=== PATIENT | male | born 1995 | race African-American/Black ===

== ENCOUNTER 2016-12-11 01:33 | Emergency (ER) | payer SELFPAY ==
[~2016-12-11] VITALS: Ht 172.7 cm; Wt 80.0 kg
[2016-12-11 01:35] VITALS: BP 115/59; PULSE 52; RESP 16; TEMP 99.7; O2SAT 98
[2016-12-11] MEDS ORDERED: SODIUM CHLORIDE 0.9% FLUSH 10 ML FLUSH IVF PRN ×2 (02:00→02:45)
[2016-12-11 02:17] LABS: BLOOD, URINE NEG (NEG); COMMENT (UR) CULT NOT INDICATED; CULTURE IF INDICATED CULT NOT INDICATED; GLUCOSE,URINE NEG (NEG); HYALINE CAST, URINE 1 /lpf (RARE); KETONE, URINE TRACE mg/dL (NEG); MUCUS URINE MANY /lpf (OCC); NITRITE,URINE NEG (NEG); PH, URINE 5.5 (5.0-8.5); URINE COLOR YELLOW (YELLW/STRAW)
--- NOTE | 2016-12-11 02:35 | PD ---
HPI Chief Complaint: Complaint Time Seen by Provider: 02:32 Travel History International Travel<30 days: No Contact w/Intl Traveler<30days: No Traveled to known affect area: No History of Present Illness HPI 21-year-old male patient presents to the ER today because he states that he had unprotected sex with a new partner, and has been having dysuria for the past day. He has not noticed any penile discharge, fevers, testicular pain, or any other symptoms. He states that he has an ex-girlfriend that was recently diagnosed with Trichomonas. Modifying Factors: None Associated Signs & Symptoms: Urinary symptoms, dysuria Risk Factors: Unprotected sex with new partner PFSH Past Medical History Asthma: Yes Developmental Delay: No Diminished Hearing: No Respiratory: Yes (STREP THROAT IN OCTOBER) Immunizations Current: Yes Social History Alcohol Use: No Tobacco Use: No Substance Use: No (H/O [facility]) Allergies-Medications (Allergen,Severity, Reaction): Coded Allergies: Bees (Verified Allergy, Severe, Anaphylaxis, 10/25/15) Uncoded Allergies: POISON CASANDRA (Allergy, Severe, Rash, 05/22/15) Reported Meds & Prescriptions Reported Meds & Active Scripts Active No Active Prescriptions or Reported Medications Review of Systems Except as stated in HPI: all other systems reviewed are Neg Physical Exam Narrative GENERAL: Well-developed young -[place] male patient currently none acute distress. Awake and oriented 3. SKIN: Focused skin assessment warm/dry. HEAD: Atraumatic. Normocephalic. EYES: Pupils equal and round. No scleral icterus. No injection or drainage. ENT: No nasal bleeding or discharge. Mucous membranes pink and moist. NECK: Trachea midline. No JVD. CARDIOVASCULAR: Regular rate and rhythm. No murmur appreciated. RESPIRATORY: No accessory muscle use. Clear to auscultation. Breath sounds equal bilaterally. GASTROINTESTINAL: Abdomen soft, non-tender, nondistended. Hepatic and splenic margins not palpable. GENITOURINARY: Circumcised. Testes descended bilaterally without evidence of rotation. No lesions or erythema. No urethral discharge. MUSCULOSKELETAL: No obvious deformities. No clubbing. No cyanosis. No edema. NEUROLOGICAL: Awake and alert. No obvious cranial nerve deficits. Motor grossly within normal limits. Normal speech. PSYCHIATRIC: Appropriate mood and affect; insight and judgment normal. Data Data Last Documented VS Vital Signs Date Time Temp Pulse Resp B/P Pulse Ox O2 Delivery O2 Flow Rate FiO2 12/11/16 01:35 99.7 52 16 115/59 98 Orders Urinalysis - C+S If Indicated (12/11/16 01:49) Gc And Chlamydia Pcr (12/11/16 01:49) Sodium Chloride 0.9% Flush (Ns Flush) (12/11/16 02:00) Azithromycin Powd Pack (Zithromax Powd P (12/11/16 02:45) Ceftriaxone Inj (Rocephin Inj) (12/11/16 02:45) Metronidazole (Flagyl) (12/11/16 02:45) Sodium Chloride 0.9% Flush (Ns Flush) (12/11/16 02:45) Lidocaine 1% Inj (50 Ml) (Xylocaine 1% I (12/11/16 02:45) Labs Laboratory Tests Test 12/11/16 02:00 Urine Color YELLOW Urine Turbidity CLEAR Urine pH 5.5 Urine Specific [place] 1.038 Urine Protein 30 mg/dL Urine Glucose (UA) NEG mg/dL Urine Ketones TRACE mg/dL Urine Occult Blood NEG Urine Nitrite NEG Urine Bilirubin NEG Urine Urobilinogen 2.0 MG/DL Urine Leukocyte Esterase NEG Urine RBC 1 /hpf Urine WBC 4 /hpf Urine Hyaline Casts 1 /lpf Urine Mucus MANY /lpf Microscopic Urinalysis Comment CULT NOT INDICATED MDM Medical Decision Making Medical Screen Exam Complete: Yes Emergency Medical Condition: Yes Medical Record Reviewed: Yes Interpretation(s) Laboratory Tests Test 12/11/16 02:00 Urine Specific [place] 1.038 (1.002-1.035) Urine Protein 30 mg/dL (NEG-TRACE) Urine Ketones TRACE mg/dL (NEG) Urine Mucus MANY /lpf (OCC) Differential Diagnosis Exposure to trichomonas/possible STD, rule out UTI Narrative Course At this point, considering exposures, my plan would be to treat him for possible STDs. UA did not show any signs of UTI. At this point, patient is well-appearing, no signs of testicular involvement. Plan to release with follow -up to primary care physician. Return for any worsening in symptoms as needed. The plan has been discussed with him and he is agreeable. Safe sex until partners are treated. Diagnosis Primary Impression: Urethritis Scripts No Active Prescriptions or Reported Meds Disposition: DISCHARGE HOME Condition: Stable [place]tharothai,Rewadee MD Dec 11, 2016 02:35
[2016-12-11] MEDS ORDERED: cefTRIAXone 250 MG VIAL IM ONE (02:45)
[2016-12-11] MEDS ORDERED: metroNIDAZOLE 500 MG TAB PO ONE (02:45)
[2016-12-11] MEDS ORDERED: LIDOCAINE HCL 1% 50 ML VIAL XX ONE (02:45)
[2016-12-11] MEDS ORDERED: AZITHROMYCIN PWD FOR SUSP 1 GM PACKET PO ONE (02:45)
[2016-12-11 03:55] LABS: CHLAMYDIA PCR NOT DETECTED (NOT DETECT); NEISSERIA PCR NOT DETECTED (NOT DETECT)
== END 2016-12-11 04:11 | disposition home or self-care (01) ==
LOC: NEPC 01:33
DX: N34.2 Other urethritis (principal); J45.909 Unspecified asthma, uncomplicated
CPT/HCPCS: 81001; 87491; 87591; 96372; 99284; J0696

== ENCOUNTER 2017-01-11 12:10 | Emergency (ER) | payer SELFPAY ==
[~2017-01-11] VITALS: Ht 180.3 cm; Wt 75.0 kg
[2017-01-11 12:11] VITALS: BP 131/64; PULSE 71; RESP 14; TEMP 97.9; O2SAT 100
[2017-01-11] MEDS ORDERED: IBUP-1129 PO (12:43)
--- NOTE | 2017-01-11 12:44 | PD ---
HPI Chief Complaint: Back/ Neck Pain or Injury Time Seen by Provider: 12:26 Travel History International Travel<30 days: No Contact w/Intl Traveler<30days: No Traveled to known affect area: No History of Present Illness HPI 21-year-old male here with complaint of back pain. Patient was sleeping at work for a prolonged period of time, thereafter he woke up with back pain, this is primarily right sided, low thoracic, upper lumbar. He states that it is painful with any sort of movement and when he lays down for a prolonged period of time he feels stiff. Patient denies any urinary symptoms. He has not taken anything for the pain prior to arrival. PFSH Past Medical History Asthma: Yes Developmental Delay: No Diminished Hearing: No Respiratory: Yes (STREP THROAT IN OCTOBER) Immunizations Current: Yes Past Surgical History Surgical History: No Previous Surgery Social History Alcohol Use: No Tobacco Use: No Substance Use: No (H/O [facility]) Allergies-Medications (Allergen,Severity, Reaction): Coded Allergies: Bees (Verified Allergy, Severe, Anaphylaxis, 10/25/15) Cultivated Oat Pollen (Verified Allergy, Unknown, 01/11/17) Wasp (Verified Allergy, Unknown, 01/11/17) Uncoded Allergies: POISON CASANDRA (Allergy, Severe, Rash, 05/22/15) Reported Meds & Prescriptions Reported Meds & Active Scripts Active Motrin Ib (Ibuprofen) 200 Mg Tablet 800 Mg PO TID PRN Review of Systems Except as stated in HPI: all other systems reviewed are Neg Physical Exam Narrative GENERAL: Well-appearing male in no acute distress, laughing with gas in room SKIN: Focused skin assessment warm/dry. HEAD: Normocephalic. EYES: No scleral icterus. No injection or drainage. ENT: Mucous membranes pink and moist. NECK: Supple without midline tenderness to palpation CARDIOVASCULAR: Regular rate and rhythm. RESPIRATORY: No accessory muscle use. MUSCULOSKELETAL: No midline tenderness to palpation of thoracic or lumbar spine. Scoliosis with deviation to the right. Patient has paraspinous tenderness to palpation without palpable spasm. NEUROLOGICAL: Awake and alert. Motor grossly within normal limits. Normal speech. PSYCHIATRIC: Appropriate mood and affect; insight and judgment normal. Data Data Last Documented VS Vital Signs Date Time Temp Pulse Resp B/P Pulse Ox O2 Delivery O2 Flow Rate FiO2 01/11/17 12:11 97.9 71 14 131/64 100 MDM Medical Decision Making Medical Screen Exam Complete: Yes Emergency Medical Condition: Yes Medical Record Reviewed: Yes Differential Diagnosis 21-year-old male here with complaint of back pain after sleeping for a prolonged period time of work. Exam is consistent with strain, no midline tenderness to palpation to suggest fracture, and the mechanism of injury does not suggest fracture either. No urinary symptoms to suggest pyelonephrosis, ureterolithiasis. Narrative Course Patient reassured, NSAIDs, ice, heat, conservative management for home Diagnosis Primary Impression: Back strain Qualified Code: S39.012A - Back strain, initial encounter Referrals: Primary Care Physician as needed Additional Instructions: Pain medications as prescribed. Tylenol, ibuprofen, Aleve as needed. Ice the affected area, you may also alternate with heat. Back strengthening exercises as discussed. Med/Other Pt SpecificInfo: Prescription(s) given Scripts Ibuprofen (Motrin Ib)200 Mg [id number] Mg PO TID PRN (PAIN SCALE 1 TO 10) #30 Prov:Silvia Lozano MD 01/11/17 Disposition: 01 DISCHARGE HOME Condition: Stable Silvia Lozano MD Jan 11, 2017 12:44
== END 2017-01-11 12:55 | disposition home or self-care (01) ==
LOC: NEPD 12:10
DX: S39.012A Strain of muscle, fascia and tendon of lower back, initial encounter (principal); X50.1XXA Overexertion from prolonged static or awkward postures, initial encounter; Y93.84 Activity, sleeping
CPT/HCPCS: 99283